=== PATIENT | male | born 1940 | race Caucasian/White ===

== ENCOUNTER 2016-05-03 17:46 | Inpatient (IN) | payer MEDICARE, MEDICAID ==
[~2016-05-03] VITALS: Ht 170.2 cm; Wt 52.0 kg
[2016-05-03 00:50] VITALS: BP 136/70
[~2016-05-03 17:46] MED LIST: IOHEXOL-350 100 ML BOTTLE ONE; SODIUM CHLORIDE 0.9% 10ML VIAL ONE
[2016-05-03 19:29] LABS: BASOPHILS % 0.8 % (0.0-2.0); EOSINOPHILS % 5.4 % (0.0-5.0); HEMATOCRIT. 41.1 % (42.0-52.0); LYMPHOCYTES % 18.4 % (20.0-50.0); MEAN CORPUSCULAR HEMOGLOBIN 30.8 pg (28.0-32.0); MEAN CORPUSCULAR VOLUME 90.6 fL (80.0-94.0); MEAN PLATELET VOLUME 7.5 fl (7.4-10.4); NEUTROPHILS % 66.4 % (40.0-76.0); PLATELET 244 x1000/uL (130-400); RED BLOOD CELL COUNT 4.54 mill/uL (4.7-6.1); RED CELL DISTRIBUTION WIDTH 13.2 % (11.6-14.6); WHITE BLOOD COUNT 9.3 x1000/uL (4.5-11.0)
[2016-05-03 19:32] LABS: D-DIMER 0.42 mg/L FEU (<0.50); PROTHROMBIN TIME 10.1 sec
[2016-05-03 19:36] LABS: ALANINE AMINOTRANSFERASE 47 IU/L (13-61); ALBUMIN 3.6 g/dL (3.4-5.0); ANION GAP 15; CALCIUM 8.2 mg/dL (8.5-10.1); CARBON DIOXIDE 23 mEq/L (21-32); CHLORIDE 107 mEq/L (98-107); INDEX HEMOLYSI 1 (1-3); INDEX ICTERIC 1 (1-4); INDEX LIPEMIC 1 (1-3); UREA NITROGEN BLOOD 20 mg/dL (7-21); eGFR > 60 mL/min (>60)
[2016-05-03 19:38] LABS: NT PRO B-TYPE NATRIURETIC PEP 145 pg/mL (5-125); TROPONIN I < 0.02 ng/mL (0.00-0.04)
[2016-05-04] VITALS: BP 136/70
[2016-05-04] MEDS ORDERED: ASPIRIN 81MG TABLET PO ONE
[2016-05-04] MEDS ORDERED: ASPI-1035 PO (00:48)
[2016-05-04 04:00] VITALS: BP 127/61
[2016-05-04] MEDS ORDERED: ENOXAPARIN 40MG/0.4ML SYR SUBCUT SCH (06:00)
[2016-05-04] MEDS ORDERED: IPRATROPIUM/ALBUTEROL 0.5-3(2.5)MG/3ML NEB INH PRN (06:00)
[2016-05-04] MEDS ORDERED: ONDANSETRON HCL 4MG/2ML VIAL IV PRN (06:00)
[2016-05-04 07:58] VITALS: BP 108/65
[2016-05-04] MEDS: ASPIRIN 81MG TABLET PO SCH (08:56)
[2016-05-04] MEDS: ENOXAPARIN 40MG/0.4ML SYR SUBCUT SCH (08:58)
[2016-05-04 09:24] LABS: CREATINE KINASE 117 IU/L (39-308); CREATINE KINASE MB FRACTION 0.6 ng/mL (0.5-3.6); INDEX HEMOLYSI 1 (1-3); TROPONIN I < 0.02 ng/mL (0.00-0.04)
[2016-05-04 09:27] LABS: ANION GAP 15; CALCIUM 8.4 mg/dL (8.5-10.1); CARBON DIOXIDE 21 mEq/L (21-32); CHLORIDE 108 mEq/L (98-107); HDL CHOLESTEROL 38 mg/dL (40-59); INDEX HEMOLYSI 1 (1-3); INDEX ICTERIC 1 (1-4); INDEX LIPEMIC 1 (1-3); LDL CHOLESTEROL 190 mg/dL (5-100); TRIGLYCERIDE 322 mg/dL (0-150); UREA NITROGEN BLOOD 20 mg/dL (7-21); eGFR > 60 mL/min (>60)
[2016-05-04 12:00] VITALS: BP 110/66
[2016-05-04 16:00] VITALS: BP 132/67
[2016-05-04 16:55] LABS: CREATINE KINASE 108 IU/L (39-308); CREATINE KINASE MB FRACTION < 0.5 ng/mL (0.5-3.6); INDEX HEMOLYSI 1 (1-3); TROPONIN I < 0.02 ng/mL (0.00-0.04)
[2016-05-04 20:00] VITALS: BP 126/60
[2016-05-04] MEDS: ATORVASTATIN CALCIUM 20MG TABLET PO SCH (21:04)
[2016-05-05] VITALS (7 sets, daily range): BP systolic 117–143; BP diastolic 59–94
[2016-05-05] MEDS: ACETAMINOPHEN 325MG TABLET PO PRN ×2 (05:46→21:50)
[2016-05-05] MEDS: ASPIRIN 81MG TABLET PO SCH (08:46)
[2016-05-05] MEDS: ENOXAPARIN 40MG/0.4ML SYR SUBCUT SCH (08:47)
[2016-05-05] MEDS: ATORVASTATIN CALCIUM 20MG TABLET PO SCH (20:58)
[2016-05-06 04:00] VITALS: BP 111/64
[2016-05-06 07:46] VITALS: BP 118/66
[2016-05-06] MEDS ORDERED: LACTULOSE 20G/30ML UDC PO NR (10:45)
[2016-05-06] MEDS: ENOXAPARIN 40MG/0.4ML SYR SUBCUT SCH (10:50)
[2016-05-06] MEDS: ASPIRIN 81MG TABLET PO SCH (10:50)
[2016-05-06 11:01] VITALS: BP 118/66
[2016-05-06 12:00] VITALS: BP 116/72
[2016-05-06 16:00] VITALS: BP 131/80
== END 2016-05-06 18:10 | DRG 191 ==
LOC: ER 19:16 → 7WST 22:00
PROVIDERS: ADMIT Internal Medicine; ATTEND Internal Medicine
DX: J44.1 Chronic obstructive pulmonary disease with (acute) exacerbation (principal); I69.354 Hemiplegia and hemiparesis following cerebral infarction affecting left non-dominant side; J06.9 Acute upper respiratory infection, unspecified; R91.8 Other nonspecific abnormal finding of lung field; E78.1 Pure hyperglyceridemia; I10 Essential (primary) hypertension; J45.909 Unspecified asthma, uncomplicated; R07.89 Other chest pain; J44.9 Chronic obstructive pulmonary disease, unspecified; Z79.82 Long term (current) use of aspirin; Z87.891 Personal history of nicotine dependence
CPT/HCPCS: 36415; 71010; 71275; 74000; 80048; 80053; 80061; 82550; 82553; 83880; 84443; 84484; 85025; 85379; 85610; 93005; 93306; 93970; 99285; A4216; J1650; Q9967

== ENCOUNTER 2017-01-04 21:59 | Inpatient (IN) | payer OTHER, MEDICAID ==
[~2017-01-04] VITALS: Ht 160 cm; Wt 53.5 kg
[~2017-01-04 21:59] MED LIST changes: +ASPI-1159 PO; -IOHEXOL-350 100 ML BOTTLE ONE; -SODIUM CHLORIDE 0.9% 10ML VIAL ONE
[2017-01-04] MEDS ORDERED: METHYLPREDNISOLONE SOD SUCC 125 MG/2 ML VIAL IV STA (22:46)
[2017-01-04] MEDS ORDERED: ALBUTEROL (0.083%) 2.5MG/3ML NEB HHN STA (22:46)
[2017-01-04] MEDS ORDERED: IPRATROPIUM BROMIDE (0.02%) 0.5MG/2.5ML NEB HHN STA (22:46)
[2017-01-04] MEDS ORDERED: ALBUTEROL (0.5%) 2.5MG/0.5ML NEB HHN ONE (23:05)
[2017-01-05 00:05] LABS: BASOPHILS % 0.6 % (0.0-2.0); EOSINOPHILS % 5.3 % (0.0-5.0); HEMATOCRIT. 37.8 % (42.0-52.0); HEMOGLOBIN. 12.8 g/dL (14.0-18.0); LYMPHOCYTES % 23.2 % (20.0-50.0); MEAN CORPUSCULAR HEMOGLOBIN 30.1 pg (28.0-32.0); MEAN CORPUSCULAR VOLUME 88.7 fL (80.0-94.0); MEAN PLATELET VOLUME 7.7 fl (7.4-10.4); MONOCYTES % 8.1 % (2.0-8.0); NEUTROPHILS % 62.8 % (40.0-76.0); PLATELET 188 x1000/uL (130-400); RED BLOOD CELL COUNT 4.26 mill/uL (4.7-6.1); RED CELL DISTRIBUTION WIDTH 13.9 % (11.6-14.6)
[2017-01-05 00:18] LABS: CARBON DIOXIDE 24 mEq/L (21-32); CHLORIDE 107 mEq/L (98-107); TROPONIN I < 0.02 ng/mL (0.00-0.04)
[2017-01-05] MEDS ORDERED: SODIUM CHLORIDE 0.9% 1,000 ML IV SCH (00:51)
[2017-01-05] MEDS ORDERED: ACETAMINOPHEN 325MG TABLET PO PRN ×2 (01:00→08:00)
[2017-01-05 02:30] VITALS: BP 113/43
[2017-01-05 04:26] VITALS: BP 131/55
[2017-01-05] MEDS ORDERED: ATOR20TA65 PO (04:54)
[2017-01-05] MEDS ORDERED: DUONEB3 ML INH (04:55)
[2017-01-05] MEDS ORDERED: LOV40 SUBCUT (04:55)
[2017-01-05] MEDS ORDERED: ONDA4TAB8 PO (04:57)
[2017-01-05] MEDS ORDERED: DOCU-138 PO (04:59)
[2017-01-05] MEDS ORDERED: ACET-2178 PO (04:59)
[2017-01-05] MEDS ORDERED: MAGN800O PO (05:02)
[2017-01-05 08:00] VITALS: BP 105/50
[2017-01-05] MEDS ORDERED: ONDANSETRON 4MG ODT PO PRN (08:00)
[2017-01-05] MEDS: ENOXAPARIN 40MG/0.4ML SYR SUBCUT SCH (09:06)
[2017-01-05] MEDS: ASPIRIN 81MG EC TABLET PO SCH (09:06)
[2017-01-05] MEDS: METHYLPREDNISOLONE SOD SUCC 40 MG/ML VIAL IV SCH ×2 (09:06→17:44)
[2017-01-05 09:47] LABS: HEMATOCRIT. 34.4 % (42.0-52.0); HEMOGLOBIN. 11.5 g/dL (14.0-18.0); MEAN CORPUSCULAR HEMOGLOBIN 29.7 pg (28.0-32.0); MEAN CORPUSCULAR VOLUME 88.6 fL (80.0-94.0); PLATELET 206 x1000/uL (130-400); RED BLOOD CELL COUNT 3.88 mill/uL (4.7-6.1); RED CELL DISTRIBUTION WIDTH 13.9 % (11.6-14.6)
[2017-01-05 10:24] LABS: CARBON DIOXIDE 18 mEq/L (21-32); CHLORIDE 109 mEq/L (98-107); CREATINE KINASE 98 IU/L (39-308); CREATINE KINASE MB FRACTION 3.3 ng/mL (0.5-3.6); TROPONIN I 0.36 ng/mL (0.00-0.04)
[2017-01-05 12:00] VITALS: BP 101/49
[2017-01-05] MEDS: IPRATROPIUM/ALBUTEROL 0.5-3(2.5)MG/3ML NEB HHN SCH ×3 (12:27→20:43)
[2017-01-05] MEDS ORDERED: SODIUM CHLORIDE 0.9% 10ML VIAL ONE (13:09)
[2017-01-05] MEDS ORDERED: IOHEXOL-350 100 ML BOTTLE ONE (13:09)
[2017-01-05] MEDS: AMLODIPINE 2.5MG TABLET PO SCH ×2 (15:00→22:31)
[2017-01-05] MEDS ORDERED: CLONIDINE 0.2MG TABLET PO PRN (15:00)
[2017-01-05] MEDS ORDERED: CLONIDINE 0.1MG TABLET PO PRN (15:15)
[2017-01-05] MEDS ORDERED: POTASSIUM CHLORIDE 20MEQ TABLET SR PO SCH (15:15)
[2017-01-05 16:00] VITALS: BP 114/51
[2017-01-05] MEDS ORDERED: LEVOFLOXACIN 500MG PREMIX 100 ML IV SCH (17:30)
[2017-01-05] MEDS ORDERED: LEVOFLOXACIN 500MG PREMIX 100 ML IV NR (18:00)
[2017-01-05 18:09] LABS: PLATELET ESTIMATE NORMAL
[2017-01-05 18:15] LABS: CLARITY URINE CLEAR (CLEAR); COLOR URINE YELLOW (YELLOW); GLUCOSE URINE 3+ (NEGATIVE); KETONES URINE TRACE (NEGATIVE); LEUKOCYTE ESTERASE URINE NEGATIVE (NEGATIVE); NITRITE URINE NEGATIVE (NEGATIVE); OCCULT BLOOD URINE TRACE (NEGATIVE); PROTEIN URINE TRACE (NEGATIVE); SPECIFIC GRAVITY URINE 1.025 (1.005-1.030); UROBILINOGEN URINE 0.2 E.U./dL (0.2-1.0)
[2017-01-05 18:31] LABS: *AMPHETAMINES SCREEN URINE NEGATIVE (NEGATIVE); *BARBITURATES SCREEN URINE NEGATIVE (NEGATIVE); *BENZODIAZEPINES SCREEN URINE NEGATIVE (NEGATIVE); *COCAINE SCREEN URINE NEGATIVE (NEGATIVE); CANNABINOID URINE SCREEN NEGATIVE (NEGATIVE); METHADONE URINE SCREEN NEGATIVE (NEGATIVE); OPIATES URINE SCREEN NEGATIVE (NEGATIVE); PHENCYCLIDINE URINE SCREEN NEGATIVE (NEGATIVE)
[2017-01-05 19:01] LABS: CREATINE KINASE MB FRACTION 5.2 ng/mL (0.5-3.6)
[2017-01-05 19:47] LABS: TROPONIN I 0.99 ng/mL (0.00-0.04)
[2017-01-05 20:00] VITALS: BP 115/53
[2017-01-05] MEDS ORDERED: ATORVASTATIN CALCIUM 20MG TABLET PO SCH (21:00)
[2017-01-06] VITALS: BP 120/48
[2017-01-06] MEDS: IPRATROPIUM/ALBUTEROL 0.5-3(2.5)MG/3ML NEB HHN SCH ×6 (03:39→21:01)
[2017-01-06 04:00] VITALS: BP 125/62
[2017-01-06 04:07] LABS: CARBON DIOXIDE 22 mEq/L (21-32); CHLORIDE 110 mEq/L (98-107); CREATINE KINASE 201 IU/L (39-308); CREATINE KINASE MB FRACTION 4.4 ng/mL (0.5-3.6); HDL CHOLESTEROL 42 mg/dL (40-59); LDL CHOLESTEROL 201 mg/dL (5-100)
[2017-01-06 04:41] LABS: TROPONIN I 0.76 ng/mL (0.00-0.04)
[2017-01-06 06:27] LABS: HEMATOCRIT. 35.4 % (42.0-52.0); HEMOGLOBIN. 11.8 g/dL (14.0-18.0); MEAN CORPUSCULAR HEMOGLOBIN 29.3 pg (28.0-32.0); MEAN CORPUSCULAR VOLUME 88.2 fL (80.0-94.0); MEAN PLATELET VOLUME 8.2 fl (7.4-10.4); PLATELET 216 x1000/uL (130-400); RED BLOOD CELL COUNT 4.01 mill/uL (4.7-6.1)
[2017-01-06] MEDS: METHYLPREDNISOLONE SOD SUCC 40 MG/ML VIAL IV SCH ×3 (06:29→21:33)
[2017-01-06 08:00] VITALS: BP 127/60
[2017-01-06] MEDS: AMLODIPINE 2.5MG TABLET PO SCH ×2 (09:00→21:00)
[2017-01-06] MEDS: DOCUSATE SODIUM 100MG CAPSULE PO PRN (10:01)
[2017-01-06] MEDS: ASPIRIN 81MG EC TABLET PO SCH (10:01)
[2017-01-06] MEDS: ENOXAPARIN 40MG/0.4ML SYR SUBCUT SCH (10:02)
[2017-01-06 12:00] VITALS: BP 139/55
[2017-01-06 12:44] LABS: CREATINE KINASE MB FRACTION 3.7 ng/mL (0.5-3.6)
[2017-01-06 12:56] LABS: TROPONIN I 0.63 ng/mL (0.00-0.04)
[2017-01-06] MEDS ORDERED: POTASSIUM CHLORIDE 20MEQ TABLET SR PO NR (14:45)
[2017-01-06] MEDS: LOSARTAN POTASSIUM 25 MG TABLET PO SCH (14:58)
[2017-01-06 17:07] LABS: PLATELET ESTIMATE NORMAL
[2017-01-06 17:12] VITALS: BP 127/61
[2017-01-06] MEDS: LEVOFLOXACIN 250MG PREMIX 50 ML IV SCH (18:29)
[2017-01-06] MEDS: NITROGLYCERIN OINT 1GM/INCH UDPKT TD SCH (18:30)
[2017-01-06 20:00] VITALS: BP 91/57
[2017-01-06] MEDS: ATORVASTATIN CALCIUM 40MG TABLET PO SCH (21:30)
[2017-01-07] VITALS: BP 131/65
[2017-01-07] MEDS: NITROGLYCERIN OINT 1GM/INCH UDPKT TD SCH ×3 (00:40→12:00)
[2017-01-07 04:00] VITALS: BP 131/62
[2017-01-07] MEDS: IPRATROPIUM/ALBUTEROL 0.5-3(2.5)MG/3ML NEB HHN SCH ×5 (04:00→21:10)
[2017-01-07] MEDS: DOCUSATE SODIUM 100MG CAPSULE PO PRN ×2 (06:05→22:12)
[2017-01-07] MEDS: METHYLPREDNISOLONE SOD SUCC 40 MG/ML VIAL IV SCH ×3 (06:06→22:12)
[2017-01-07 08:00] VITALS: BP 105/63
[2017-01-07 08:21] LABS: CARBON DIOXIDE 21 mEq/L (21-32); CHLORIDE 106 mEq/L (98-107)
[2017-01-07 08:50] LABS: TROPONIN I 0.55 ng/mL (0.00-0.04)
[2017-01-07] MEDS: LOSARTAN POTASSIUM 25 MG TABLET PO SCH (09:00)
[2017-01-07] MEDS: AMLODIPINE 2.5MG TABLET PO SCH (09:00)
[2017-01-07] MEDS: ASPIRIN 81MG EC TABLET PO SCH (09:37)
[2017-01-07] MEDS: ENOXAPARIN 40MG/0.4ML SYR SUBCUT SCH (09:38)
[2017-01-07 12:16] VITALS: BP 96/33
[2017-01-07 16:00] VITALS: BP 117/85
[2017-01-07] MEDS: LEVOFLOXACIN 250MG PREMIX 50 ML IV SCH (18:39)
[2017-01-07 20:00] VITALS: BP 125/58
[2017-01-07] MEDS: ATORVASTATIN CALCIUM 40MG TABLET PO SCH (22:12)
[2017-01-08] VITALS (7 sets, daily range): BP systolic 99–131; BP diastolic 51–73
[2017-01-08] MEDS: IPRATROPIUM/ALBUTEROL 0.5-3(2.5)MG/3ML NEB HHN SCH ×5 (01:47→20:16)
[2017-01-08] MEDS: METHYLPREDNISOLONE SOD SUCC 40 MG/ML VIAL IV SCH ×2 (06:10→13:23)
[2017-01-08 07:28] LABS: HEMATOCRIT. 37.4 % (42.0-52.0); HEMOGLOBIN. 12.7 g/dL (14.0-18.0); MEAN CORPUSCULAR HEMOGLOBIN 29.3 pg (28.0-32.0); MEAN CORPUSCULAR VOLUME 86.4 fL (80.0-94.0); MEAN PLATELET VOLUME 8.8 fl (7.4-10.4); PLATELET 237 x1000/uL (130-400); RED BLOOD CELL COUNT 4.33 mill/uL (4.7-6.1)
[2017-01-08 08:43] LABS: CARBON DIOXIDE 23 mEq/L (21-32); CHLORIDE 103 mEq/L (98-107)
[2017-01-08 08:44] LABS: TROPONIN I 0.34 ng/mL (0.00-0.04)
[2017-01-08] MEDS: LOSARTAN POTASSIUM 25 MG TABLET PO SCH (09:00)
[2017-01-08] MEDS: ASPIRIN 81MG EC TABLET PO SCH (09:10)
[2017-01-08] MEDS: ENOXAPARIN 40MG/0.4ML SYR SUBCUT SCH (09:11)
[2017-01-08 14:21] LABS: PLATELET ESTIMATE NORMAL
[2017-01-08] MEDS: LEVOFLOXACIN 250MG PREMIX 50 ML IV SCH (18:00)
== END 2017-01-08 21:00 | DRG 180 ==
LOC: ER 22:58 → EDBEDREQTM 01-05 00:56 → EDBEDREQ 01-05 00:56 → ENRESERV 01-05 01:19 → 5WST 01-05 01:19
PROVIDERS: ADMIT Internal Medicine; ATTEND Internal Medicine
DX: C34.12 Malignant neoplasm of upper lobe, left bronchus or lung (principal); J96.00 Acute respiratory failure, unspecified whether with hypoxia or hypercapnia; I69.354 Hemiplegia and hemiparesis following cerebral infarction affecting left non-dominant side; J44.1 Chronic obstructive pulmonary disease with (acute) exacerbation; D63.8 Anemia in other chronic diseases classified elsewhere; E87.6 Hypokalemia; I11.9 Hypertensive heart disease without heart failure; R73.9 Hyperglycemia, unspecified; Z79.82 Long term (current) use of aspirin; Z87.891 Personal history of nicotine dependence; Z99.3 Dependence on wheelchair; Z72.89 Other problems related to lifestyle
CPT/HCPCS: 36415; 71010; 71275; 80048; 80053; 80061; 80305; 81001; 82378; 82550; 82553; 83036; 83735; 83880; 84443; 84484; 85025; 85379; 87040; 87086; 93005; 93306; 93970; 94640; 94664; 96361; 96374; 99285; A4216; J1650; J1956; J2920; J2930; J7030; J7050; J7611; J7620; Q9967